=== PATIENT | male | born 1995 | race American Indian/Alaskan Native ===

== ENCOUNTER 2017-05-26 16:59 | Emergency (ER) | payer SELFPAY ==
[~2017-05-26] VITALS: Ht 193 cm; Wt 101.9 kg
[~2017-05-26 16:59] MED LIST: NOHOMEMEDS; PERCOCET 7.51 TABLET PO; [UNRECOGNIZED DRUG - REMARK]
[2017-05-26 17:44] LABS: ADD MIUA? YES; BILIRUBIN NEGATIVE; BLOOD NEGATIVE; COLOR YELLOW ((YELLOW)); GLUCOSE (STRIP) NEGATIVE; KETONES NEGATIVE; LEUKOCYTES NEGATIVE; NITRITE NEGATIVE; PROTEIN (STRIP) NEGATIVE; SPECIFIC GRAVITY 1.024 (1.000-1.030); UROBILINOGEN 0.2 MG/DL (0.2-1.0)
[2017-05-26 17:55] LABS: EOSINOPHIL (%) 0.2 % (0-5); HEMATOCRIT 44.6 % (38.0-50.0); IMMATURE GRANULOCYTE (%) 0.3 % (0.0-0.7); INSTRUMENT ABS NEUTROPHIL CT 7.7 K/uL; LYMPHOCYTE COUNT 1.7 K/uL (1.0-2.8); MCH 31.7 PG (29.0-34.0); MCHC 35.7 G/DL (30.0-36.0); MCV 88.8 FL (86-99); MEAN PLAT.VOLUME 8.7 uM^3 (9.0-12.4); MONOCYTE (%) 4.6 % (3-12); MONOCYTE COUNT 0.5 K/uL (0-0.8); NEUTROPHIL (%) 77.5 % (45-76); NEUTROPHIL COUNT 7.7 K/uL (1.8-6.4); PLATELET COUNT 364 K/uL (156-360); RBC DIS.WIDTH-CV 11.7 % (11.8-14.6); RBC DIS.WIDTH-SD 37.2 % (39-53); RED BLOOD COUNT 5.02 M/uL (4.00-5.50); WHITE BLOOD COUNT 9.9 K/uL (4.1-10.2)
[2017-05-26 17:58] LABS: BACTERIA NONE SEEN /HPF; EPITHELIAL CELLS RARE /HPF; HYALINE CASTS 0-5 /LPF; MUCUS 1+ /LPF; RED BLOOD CELLS 0-5 /HPF (0-5); WHITE BLOOD CELLS 0-5 /HPF (0-5)
[2017-05-26 18:05] LABS: CHLORIDE 106 mEq/L (99-109); POTASSIUM 4.2 mEq/L (3.7-5.4); SODIUM 140 mEq/L (136-147)
[2017-05-26 18:07] LABS: GLUCOSE 99 mg/dL (70-99)
[2017-05-26 18:09] LABS: ANION GAP 12 MEQ/L (2-14); TOTAL BILIRUBIN 0.4 mg/dL (0.0-1.0)
[2017-05-26 18:11] LABS: ALKALINE PHOSPHATASE 94 IU/L (3-129); GFR ESTIMATE (CALCULATED) > 59 mL/min/
[2017-05-26 18:12] LABS: UREA NITROGEN (BUN) 12 mg/dL (9-23)
[2017-05-26 18:13] LABS: DIRECT BILIRUBIN 0.1 mg/dL (0.0-0.3)
[2017-05-26 18:14] LABS: LIPASE 11 U/L (1.0-51.0)
[2017-05-26] MEDS ORDERED: ZOFRAN ODT4 MG PO (18:28)
[2017-05-26] MEDS ORDERED: BENTYL20 MG PO (18:28)
[2017-05-26 18:50] VITALS: BP 131/70
== END 2017-05-26 18:51 | disposition home or self-care (01) ==
LOC: RME 16:59 → EME 16:59 → RME 18:51
PROVIDERS: Physician Assistant
DX: R11.2 Nausea with vomiting, unspecified (principal); R19.7 Diarrhea, unspecified
CPT/HCPCS: 80048; 80076; 81003; 83690; 85025; 99281; 99285; J1885; J2405; J7030